=== PATIENT | male | born 1990 | race Caucasian/White ===

== ENCOUNTER 2017-08-30 02:47 | Emergency (ER) | payer SELFPAY ==
[~2017-08-30] VITALS: Ht 188 cm; Wt 97.5 kg
[2017-08-30 02:57] VITALS: BP 134/67
--- NOTE | 2017-08-30 03:00 | NUR ---
PATIENT AMBULATED TO ER CHAIR C.
--- NOTE | 2017-08-30 03:02 | NUR ---
PATIENT IS A 26 Y/O MALE WHO PRESENTS TO THE ED C/O BILATERAL EYE PAIN. PT STATES, "MY BROTHER HAD PINK EYE AND I THINK I GOT IT." PT REPORTS 7/10 BURNING EYE PAIN AND THROAT PAIN THAT DOES NOT RADIATE. NOTED TEARING AND PINK COLOR TO EYE. PT DENIES CP, SOB, N/V/D. PT AAOX4, RR EVEN/UNLABORED. PT REPOSITIONED FOR COMFORT, PT SITTING IN CHAIR. ER MD DR. RUSSELL NOTIFIED. WILL CONTINUE TO MONITOR.
[2017-08-30 03:27] VITALS: BP 133/67
--- NOTE | 2017-08-30 03:27 | NUR ---
Patient discharged with v/s stable. Written and verbal after care instructions given and explained. Patient alert, oriented and verbalized understanding of instructions. Ambulatory with steady gait. All questions addressed prior to discharge. ID band removed. Patient advised to follow up with PMD. Rx of NEOMYCIN given. Patient educated on indication of medication including possible reaction and side effects. Opportunity to ask questions provided and answered.
== END 2017-08-30 03:27 | disposition home or self-care (01) ==
LOC: MED 02:47
DX: H10.9 Unspecified conjunctivitis (principal); Z88.0 Allergy status to penicillin
CPT/HCPCS: 99283

== ENCOUNTER 2020-03-11 18:39 | Emergency (ER) | payer OTHER ==
[~2020-03-11] VITALS: Ht 188 cm; Wt 99.8 kg
[2020-03-11 18:42] VITALS: BP 138/97
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
--- NOTE | 2020-03-11 18:56 | NUR ---
RAD AT BEDSIDE
--- NOTE | 2020-03-11 19:06 | NUR ---
REPORT GIVEN TO CRUZITO DEVI FOR CONTINUITY OF CARE
[2020-03-11 19:08] VITALS: BP 138/97
== END 2020-03-11 20:33 | disposition home or self-care (01) ==
LOC: MED 18:39
DX: S69.91XA Unspecified injury of right wrist, hand and finger(s), initial encounter (principal); L03.113 Cellulitis of right upper limb; J45.909 Unspecified asthma, uncomplicated; Z88.0 Allergy status to penicillin; Y04.0XXA Assault by unarmed brawl or fight, initial encounter; Y93.89 Activity, other specified; Y92.89 Other specified places as the place of occurrence of the external cause; Y99.8 Other external cause status
CPT/HCPCS: 73130; 90471; 90715; 99283; Q0092

== ENCOUNTER 2020-04-15 11:04 | Emergency (ER) | payer OTHER ==
[~2020-04-15] VITALS: Ht 188 cm; Wt 99.8 kg
[2020-04-15 11:13] VITALS: BP 152/94
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
--- NOTE | 2020-04-15 11:15 | NUR ---
PT DID SAY HE VOMITTED MOST OF THE INGESTED PILLS.
[2020-04-15] MEDS ORDERED: NACL 0.9% 1,000 ML IV ONE (11:20)
[2020-04-15 11:44] LABS: BASOPHILS # (AUTO) 0.1 K/uL (0.00-0.22); BASOPHILS % (AUTO) 0.7 % (0.0-2.0); EOSINOPHILS # (AUTO) 0.1 K/uL (0-0.4); EOSINOPHILS % (AUTO) 0.5 % (0.0-4.0); HEMATOCRIT 47.5 % (36-52); HEMOGLOBIN 16.5 g/dL (12.0-18.0); LYMPHOCYTES # (AUTO) 2.3 K/uL (2.0-11.5); LYMPHOCYTES % (AUTO) 21.5 % (20.5-51.1); MEAN CORPUSCULAR HEMOGLOBIN 32 pg (27-31); MEAN CORPUSCULAR HGB CONC 35 g/dL (33-37); MEAN CORPUSCULAR VOLUME 90.5 fL (80-94); MONOCYTES # (AUTO) 0.9 K/uL (0.8-1.0); MONOCYTES % (AUTO) 8.8 % (1.7-9.3); NEUTROPHILS # (AUTO) 7.3 K/uL (1.8-7.7); NEUTROPHILS % (AUTO) 68.5 % (42.2-75.2); PLATELET COUNT (AUTO) 339 K/uL (140-450); RED BLOOD CELL COUNT(AUTO) 5.25 MIL/uL (4.20-6.10); RED CELL DISTRIBUTION WIDTH 13.5 % (11.6-13.7); WHITE BLOOD COUNT (AUTO) 10.6 K/uL (4.8-10.8)
--- NOTE | 2020-04-15 11:46 | NUR ---
EKG BEING PERFORMED BY SU PATIÑO.
[2020-04-15 11:58] LABS: BARBITURATE, URINE NEGATIVE ng/ml (NEG <=200); BENZODIAZEPINE, URINE NEGATIVE ng/mL (NEG <=200); CANNABINOID, URINE NEGATIVE ng/mL (NEG <=50); COCAINE, URINE POSITIVE ng/mL (NEG <=300); PHENCYCLIDINE SCREEN,URINE NEGATIVE ng/mL (NEG <=25)
[2020-04-15 11:59] LABS: OPIATE, URINE NEGATIVE ng/mL (NEG <=2000)
[2020-04-15 12:05] LABS: ACETAMINOPHEN 2.8 ug/ml (10-30); ALBUMIN 4.4 g/dL (3.4-5.0); ANION GAP 11.7 (8-16); ASPARTATE AMINOTRANSFERASE 85 U/L (15-37); CHLORIDE 102 mmol/L (98-107); CREATININE 1.4 mg/dL (0.6-1.3); GFR ARICAN-AMERICAN 77 mL/min (>90); GLUCOSE 93 mg/dL (74-106); POTASSIUM 3.7 mmol/L (3.5-5.1); SALICYLATE < 2.8 mg/dL (2.8-20.0); SODIUM SERUM 141 mmol/L (136-145); TOTAL BILIRUBIN 0.4 mg/dL (0.0-1.0); UREA NITROGEN, BLOOD 14 mg/dL (7-18)
--- NOTE | 2020-04-15 12:51 | NUR ---
[facility] AT BEDSIDE.
--- NOTE | 2020-04-15 12:55 | NUR ---
PT PLACED ON 5150 HOLD. ALL BELONGINGS COLLECTED AND ROOM CLEARED.
--- NOTE | 2020-04-15 12:57 | NUR ---
COVID ANTIGEN SWAB COLLECTED AND SENT TO LAB.
--- NOTE | 2020-04-15 14:00 | NUR ---
CALLED [facility] AND SPOKE TO SINTIA, PHARMACIST. SINTIA ADVICE TO WATCH OUT OF RESP DEPRESSION, REPEAT ACETAMINOPHEN, AST, ALT LEVELS.
--- NOTE | 2020-04-15 14:46 | NUR ---
PT EATING A SANDWICH. NO DISTRESS NOTED.
[2020-04-15 15:01] LABS: ALBUMIN 3.9 g/dL (3.4-5.0); ANION GAP 11.1 (8-16); ASPARTATE AMINOTRANSFERASE 76 U/L (15-37); CARBON DIOXIDE 28.5 mmol/L (21-32); CHLORIDE 104 mmol/L (98-107); CREATININE 1.3 mg/dL (0.6-1.3); GFR ARICAN-AMERICAN 84 mL/min (>90); GLUCOSE 90 mg/dL (74-106); POTASSIUM 3.6 mmol/L (3.5-5.1); SODIUM SERUM 140 mmol/L (136-145); TOTAL BILIRUBIN 0.4 mg/dL (0.0-1.0); UREA NITROGEN, BLOOD 13 mg/dL (7-18)
[2020-04-15 15:06] LABS: ACETONE, SERUM NEGATIVE (NEGATIVE)
--- NOTE | 2020-04-15 16:50 | NUR ---
[facility] aware of pt
--- NOTE | 2020-04-15 17:00 | NUR ---
Packet faxed tot the followng faciltities for review: [facility]
--- NOTE | 2020-04-15 17:52 | NUR ---
PT EATING DINNER AT THIS TIME. NO DISTRESS NOTED.
--- NOTE | 2020-04-15 18:47 | NUR ---
PT SLEEPING COMFORTABLY IN BED, NO DISTRESS NOTED.
--- NOTE | 2020-04-15 19:15 | NUR ---
REPORT RECIEVED FROM MARITO APARICIO. TRANSFER OF CARE AT THIS TIME.
--- NOTE | 2020-04-15 19:15 | NUR ---
Pt report given to MARITO MACIEL. Transfer of care at this time.
--- NOTE | 2020-04-15 19:46 | NUR ---
PT ENCOURAGED TO EAT HIS DINNER. ALL PT NEEDS MET AT THIS TIME. POSITIONED FOR COMFORT. EQUAL CHEST RISE AND FALL. BED LOCKED AND IN LOWEST POSITION. SIDE RAILS X2.
--- NOTE | 2020-04-15 21:05 | NUR ---
SPOKE TO KEILA, INTAKE COUNSELOR, FROM [facility] TO ANSWER ALL INTAKE SCREENING QUESTIONS. STATES SHE WILL CALL BE BACK WITH MORE INFORMATION.
--- NOTE | 2020-04-15 21:25 | NUR ---
KEILA FROM [facility] CALLED BACK TO INFORM THAT THE PT WAS ACCEPTED TO THE FACILITY BY DR. AHUJA. WAS INFORMED THAT TRANSPORT NEEDS TO BE SET UP TO INTAKE UNIT.
--- NOTE | 2020-04-15 21:26 | NUR ---
SPOKE TO WILLIAM FROM [employer] TO UPDATE ON CURRENT PT STATUS. ALL QUESTIONS ANSWERED.
--- NOTE | 2020-04-15 21:49 | NUR ---
[facility] TRANSPORT AT BEDSIDE
[2020-04-15 22:03] VITALS: BP 149/91
--- NOTE | 2020-04-15 22:03 | NUR ---
PT TAKEN BY NORMA TO [facility]
--- NOTE | 2020-04-15 22:03 | NUR ---
Patient to be transferred to [facility]. Is being transferred due to 5150. Receiving facility has accepting physician and available space. ER physician has signed transfer form. Patient or responsible libertarian has agreed to transfer and signed form. Patient belongings inventoried and will be sent with patient. Copy of nursing notes, lab reports, EKG, Physicians Orders and X-rays to be sent with patient. Report called to KEILA INTAKE COUNSELOR at receiving facility. [facility] IN ROUTE TO RECIEVING FACILITY.
== END 2020-04-15 22:03 | disposition short-term general hospital (02) ==
LOC: MED 11:04
DX: R45.851 Suicidal ideations (principal); J45.909 Unspecified asthma, uncomplicated; Z88.0 Allergy status to penicillin
CPT/HCPCS: 36415; 80053; 80305; 82009; 85025; 87426; 93005; 96360; 99285; G0480; G0482; J7030

== ENCOUNTER 2020-09-28 03:47 | Emergency (ER) | payer OTHER ==
[~2020-09-28] VITALS: Ht 188 cm; Wt 99.8 kg
[2020-09-28 03:58] VITALS: BP 130/78
--- NOTE | 2020-09-28 04:00 | NUR ---
TO LOBBY A/W BED AMBULATORY
--- NOTE | 2020-09-28 04:36 | NUR ---
PT AMBUALTORY TO BED #3
--- NOTE | 2020-09-28 04:41 | NUR ---
PATIENT BIB SELF FOR C/O OPEN WOUND ON R ANTERIOR PERALTA S/P FALL. PER PATIENT, "I FELL WHILE TAKING A HIKE." PAIN 7/10, THSOBBING, CONTINOUS. PATIENT DENIES PATING ANY OTC MEDICATIONS FOR PAIN PRIOR TO ARRIVAL. PATIENT WOUND 3" X 1.5", BLEEDING CONTROLLED, SUBQ TISSUE NOTED. PEDAL PULSED STRONG AND EQUAL BILAT. CMS INTACT CAP REFILL <3. PATIENT DENIES HITTING HEAD. SEE COMPLETE ASSESMENT FOR FUTHER DETAILS. MEDHX: ASTHMA ALLERGIES: PCN
[2020-09-28] MEDS ORDERED: LIDOCAINE MPF 1% 10 MG/ML VIAL INJ ONE (04:50)
--- NOTE | 2020-09-28 05:00 | NUR ---
ERMD SUTURING PATIENT'S WOUND AT BEDSIDE.
[2020-09-28] MEDS ORDERED: LIDOCAINE/EPI 1% 1:100000 20 ML VIAL INJ ONE ×2 (05:02→05:05)
[2020-09-28 05:40] VITALS: BP 130/78
--- NOTE | 2020-09-28 05:40 | NUR ---
Patient discharged with v/s stable. Written and verbal after care instructions given and explained. Patient verbalized understanding. Ambulatory with steady gait. All questions addressed prior to discharge. Advised to follow up with PMD.
== END 2020-09-28 05:40 | disposition home or self-care (01) ==
LOC: MED 03:47
DX: S81.811D Laceration without foreign body, right lower leg, subsequent encounter (principal); J45.909 Unspecified asthma, uncomplicated; Z88.0 Allergy status to penicillin; X58.XXXD Exposure to other specified factors, subsequent encounter
CPT/HCPCS: 12002; 99282; J2001

== ENCOUNTER 2020-10-08 20:35 | Emergency (ER) | payer OTHER ==
[~2020-10-08] VITALS: Ht 188 cm; Wt 99.8 kg
[2020-10-08 21:12] VITALS: BP 128/72
--- NOTE | 2020-10-08 21:15 | NUR ---
TO LOBBY A/W BED AMBULATORY
--- NOTE | 2020-10-08 22:07 | NUR ---
PT AMBULATED TO ER BED 6 W/ STEADY GAIT.
--- NOTE | 2020-10-08 22:21 | NUR ---
SUTURE REMOVAL KIT PLACED AT BEDSIDE FOR ERMD UTILIZATION.
--- NOTE | 2020-10-08 22:47 | NUR ---
Dr. Echols examining patient.
--- NOTE | 2020-10-08 22:48 | NUR ---
PT ASSESSMENT COMPLETED BY AYESHA, NO NURSING INTERVENTIONS NEEDED AT THIS TIME.
[2020-10-08] MEDS ORDERED: IBUP-2213 PO (22:57)
[2020-10-08] MEDS ORDERED: SULF-59 PO (22:57)
[2020-10-08 23:03] VITALS: BP 128/72
--- NOTE | 2020-10-08 23:03 | NUR ---
Patient discharged with v/s stable. Written and verbal after care instructions given and explained. Patient alert, oriented and verbalized understanding of instructions. Ambulatory with steady gait. All questions addressed prior to discharge. ID band removed. Patient advised to follow up with PMD. Rx of BACTRIM & IBUPROFEN 600MG given. Patient educated on indication of medication including possible reaction and side effects. Opportunity to ask questions provided and answered.
== END 2020-10-08 23:03 | disposition home or self-care (01) ==
LOC: MED 20:35
DX: S81.811D Laceration without foreign body, right lower leg, subsequent encounter (principal); J45.909 Unspecified asthma, uncomplicated; Z48.00 Encounter for change or removal of nonsurgical wound dressing; Z88.0 Allergy status to penicillin; X58.XXXD Exposure to other specified factors, subsequent encounter
CPT/HCPCS: 99281

== ENCOUNTER 2021-02-08 20:54 | Emergency (ER) | payer OTHER ==
[~2021-02-08] VITALS: Ht 188 cm; Wt 99.8 kg
[~2021-02-08 20:54] MED LIST: IBUP-2213 PO; SULF-59 PO
[2021-02-08 21:12] VITALS: BP 135/75
--- NOTE | 2021-02-08 22:10 | NUR ---
TO ER BED 12
--- NOTE | 2021-02-08 22:10 | NUR ---
PT CURRENTLY GETTING LABS DRAWN IN A.
--- NOTE | 2021-02-08 22:18 | NUR ---
arrives to room 12 placed in gown . pt awake alertx3 no active bleeding. skin warm dry intact. last bm yesterday dark red on last.
[2021-02-08 22:46] LABS: BASOPHILS # (AUTO) 0.1 K/uL (0.00-0.22); BASOPHILS % (AUTO) 0.8 % (0.0-2.0); EOSINOPHILS # (AUTO) 0.2 K/uL (0-0.4); EOSINOPHILS % (AUTO) 2.4 % (0.0-4.0); HEMATOCRIT 48.7 % (36-52); HEMOGLOBIN 17.1 g/dL (12.0-18.0); LYMPHOCYTES # (AUTO) 2.2 K/uL (2.0-11.5); LYMPHOCYTES % (AUTO) 24.2 % (20.5-51.1); MEAN CORPUSCULAR HEMOGLOBIN 33 pg (27-31); MEAN CORPUSCULAR HGB CONC 35 g/dL (33-37); MEAN CORPUSCULAR VOLUME 93.2 fL (80-94); MONOCYTES # (AUTO) 0.9 K/uL (0.8-1.0); MONOCYTES % (AUTO) 9.8 % (1.7-9.3); NEUTROPHILS # (AUTO) 5.6 K/uL (1.8-7.7); NEUTROPHILS % (AUTO) 62.8 % (42.2-75.2); PLATELET COUNT (AUTO) 342 K/uL (140-450); RED BLOOD CELL COUNT(AUTO) 5.23 MIL/uL (4.20-6.10); RED CELL DISTRIBUTION WIDTH 13.6 % (11.6-13.7)
[2021-02-08 22:58] LABS: ALBUMIN 4.1 g/dL (3.4-5.0); ANION GAP 14.6 (8-16); CARBON DIOXIDE 30.9 mmol/L (21-32); CREATININE 1.4 mg/dL (0.6-1.3); POTASSIUM 3.5 mmol/L (3.5-5.1); TOTAL BILIRUBIN 0.5 mg/dL (0.0-1.0)
--- NOTE | 2021-02-08 23:12 | NUR ---
Patient appears to be resting comfortably in bed. Vital Signs within normal limits. Respirations even and unlabored.c/o mild epigastric pain burning sensation.
[2021-02-08 23:23] VITALS: BP 115/78
--- NOTE | 2021-02-08 23:23 | NUR ---
Patient discharged with v/s stable. Written and verbal after care instructions given and explained. Patient verbalized understanding. Ambulatory with steady gait. ID band removed. All questions addressed prior to discharge. Advised to follow up with PMD.
== END 2021-02-08 23:23 | disposition home or self-care (01) ==
LOC: MED 20:54
DX: K92.1 Melena (principal)
CPT/HCPCS: 36415; 80053; 85025; 86140; 86886; 86900; 86901; 99283

== ENCOUNTER 2024-04-17 16:14 | Emergency (ER) | payer OTHER ==
[~2024-04-17] VITALS: Ht 188 cm; Wt 88.0 kg
[2024-04-17 16:45] VITALS: BP 119/74; PULSE 76; RESP 16; TEMP 98; O2SAT 99
[2024-04-17] MEDS: KETOROLAC 30 MG/ML VIAL IM ONE (17:40)
[2024-04-17] MEDS ORDERED: SULF-59 PO (17:42)
[2024-04-17] MEDS ORDERED: IBUP-2213 PO (17:42)
[2024-04-17] MEDS ORDERED: ACET500T99 PO (17:43)
== END 2024-04-17 17:55 | disposition home or self-care (01) ==
LOC: MED 16:14
DX: L03.012 Cellulitis of left finger (principal); J45.909 Unspecified asthma, uncomplicated; Z79.899 Other long term (current) drug therapy; Z88.0 Allergy status to penicillin
CPT/HCPCS: 96372; 99283; J1885